=== PATIENT | female | born 1970 ===

== ENCOUNTER 2024-01-24 08:09 | Day surgery (SDC) | payer OTHER ==
[2024-01-24] MEDS ORDERED: ONDANSETRON HCL 2 MG/ML VIAL IV ONE (14:45)
[2024-01-24] MEDS ORDERED: DIPHENHYDRAMINE HCL 50 MG/ML VIAL 1ML IV ONE (14:45)
[2024-01-24] MEDS ORDERED: MIDAZOLAM HCL 2 MG/2 ML VIAL IV ONE (14:45)
[2024-01-24] MEDS ORDERED: fentaNYL CITRATE 50 MCG/ML AMPUL IV PUSH ONE (14:45)
== END 2024-01-24 16:15 | disposition home or self-care (01) ==
LOC: AMB-ENDOS 08:09
PROVIDERS: ATTEND Colon & Rectal Surgery
DX: K60.3 Anal fistula (principal); K63.5 Polyp of colon; K57.30 Diverticulosis of large intestine without perforation or abscess without bleeding